=== PATIENT | male | born 1990 | race Caucasian/White ===

== ENCOUNTER 2019-12-12 14:49 | Emergency (ER) | payer BC ==
[2019-12-12 15:09] VITALS: Ht 165.1 cm
[2019-12-12 15:59] LABS: PLATELET COUNT 322 x10^3mcL (130-400); RED CELL DISTRIBUTION WIDTH 12.4 % (11.5-14.5)
[2019-12-12 16:03] LABS: CALCIUM 8.2 mg/dL (8.5-10.1); CARBON DIOXIDE 27.3 mmol/L (21-32); CHLORIDE SERUM 101 mmol/L (98-107); CREATININE SERUM 0.8 mg/dL (0.7-1.3); GFR1 > 60 mL/min; GLUCOSE SERUM 95 mg/dL (74-106); POTASSIUM SERUM 3.6 mmol/L (3.5-5.1); SODIUM SERUM 136 mmol/L (136-145)
[2019-12-12 16:14] LABS: ALBUMIN 3.9 g/dL (3.4-5.0); ALKALINE PHOSPHATASE 48 U/L (46-116); ALT/SGPT 22 U/L (16-63); AST/SGOT 7 U/L (15-37); BILIRUBIN TOTAL 0.8 mg/dL (0.20-1.00); LIPASE 540 IU/L (73-393); TOTAL PROTEIN, SERUM 7.3 g/dL (6.4-8.2)
[2019-12-12 16:40] LABS: BAND NEUTROPHIL 3 % (0-10); BASOPHIL 0 % (0-2); MONOCYTE 4 % (0-7); SEGMENTED NEUTROPHILS 77 % (37-75)
[2019-12-12 16:42] LABS: PLATELET MORPHOLOGY PLATELETS NORMAL; rbc morphology (normal/abnorm) NORMAL (NORMAL)
[2019-12-12 17:10] VITALS: BP 116/53
[2019-12-12 17:18] LABS: microscopic required? YES; urine erythrocyte 1+ (NEGATIVE)
== END 2019-12-12 17:10 | disposition home or self-care (01) ==
LOC: ED 14:49
PROVIDERS: Emergency Medicine
DX: K52.9 Noninfective gastroenteritis and colitis, unspecified (principal); Z88.5 Allergy status to narcotic agent

== ENCOUNTER 2019-12-26 11:09 | Emergency (ER) | payer BC ==
[~2019-12-26] VITALS: Ht 167.6 cm; Wt 71.2 kg
[2019-12-26 11:25] VITALS: Ht 167.6 cm; Wt 71.2 kg
[2019-12-26 13:54] VITALS: BP 102/61
== END 2019-12-26 13:54 | disposition home or self-care (01) ==
LOC: ED 11:09
DX: M54.40 Lumbago with sciatica, unspecified side (principal); Z88.5 Allergy status to narcotic agent
CPT/HCPCS: J1885